=== PATIENT | male | born 1975 | race African-American/Black ===

== ENCOUNTER 2020-05-13 18:06 | Emergency (ER) | payer OTHER ==
[~2020-05-13] VITALS: Ht 165.1 cm; Wt 63.5 kg
[2020-05-13] MEDS ORDERED: PROAIR HFA8.5 GM INH (18:14)
[2020-05-13 18:54] LABS: ABSOLUTE BASOPHILS 0.1 thou/uL (0.0-0.2); ABSOLUTE EOSINOPHILS 0.4 thou/uL (0.0-0.7); ABSOLUTE MONOCYTES 0.9 thou/uL (0.0-1.2); ABSOLUTE NEUTROPHILS 6.5 thou/uL (1.6-8.1); BASOPHILS 1.1 %; EOSINOPHILS 3.4 %; HEMATOCRIT 42.5 % (42.0-52.0); HEMOGLOBIN 14.2 gm/dL (14.0-18.0); LYMPHOCYTES 27.6 %; MCHC 33.5 g/dL (28.0-37.0); MCV 89.5 fL (80.0-100.0); MONOCYTES 8.4 %; MPV 7.2 fl. (7.2-11.1); NUCLEATED RBCS 0 /100WBC; PLATELET COUNT* 280 thou/uL (150-400); POLYS 59.5 %; RBC 4.75 mil/uL (4.50-6.00); RDW-CV 13.9 % (10.5-14.5); WBC 10.9 thou/uL (4.0-11.0)
[2020-05-13 19:04] LABS: APTT 26.5 Seconds (25.0-31.3); PROTIME 10.7 Seconds (9.20-11.50)
[2020-05-13 19:08] LABS: CALCIUM 9.3 mg/dL (8.5-10.1); CREATININE 1.4 mg/dL (0.6-1.3); POTASSIUM 3.8 mmol/L (3.5-5.1)
[2020-05-13 19:12] LABS: ALBUMIN 3.9 g/dL (3.4-5.0); TOTAL BILIRUBIN 0.3 mg/dL (<0.1-1.0); TOTAL PROTEIN 7.2 g/dL (6.4-8.2)
[2020-05-13] MEDS ORDERED: CYCLOBENZAPRINE5 MG PO (19:31)
[2020-05-13] MEDS ORDERED: NAPROSYN500 MG PO (19:31)
[2020-05-13 19:34] LABS: AMP/METHAMP Negative (Negative); BARBITURATES Negative (Negative); BENZODIAZEPINES Negative (Negative); COCAINE Negative (Negative); METHADONE Negative (Negative); OPIATES Negative (Negative); PCP Negative (Negative); THC POSITIVE (Negative)
[2020-05-13] MEDS ORDERED: KEFLEX500 M1 PO (19:46)
[2020-05-13 19:56] VITALS: BP 125/70
--- NOTE | 2020-05-14 09:05 | EKG ---
[place] [address] ELECTROCARDIOGRAM REPORT Name: DIDI BHAT Room: [facility]#: [id number] Admission: 05/13/20 Attend Phys: Discharge: 05/13/20 Date of : 79 Date of Service: 05/13/201810 Report #: [id number] THIS REPORT FOR: //name// [facility] ED Test Date: 2020-05-13 Test Time: 18:11:20 Pat Name: DIDI BHAT Department: Room: Gender: Contracts Representative: : 1975 Requested By: Corie Cordoba Order Number: [id number] MD: Mina Cameron Measurements Intervals [place] Rate: 59 P: 55 VA: 176 QRS: 73 QRSD: 76 T: 54 QT: 365 QTc: 362 Interpretive Statements Sinus rhythm ST elev, probable normal early repol pattern Baseline wander in lead(s) II,III,aVR,aVL,aVF,V1,V2 No previous ECG available for comparison Electronically Signed On 05-14-2020 9:05:42 [employer]RAIN [employer] by Mina Cameron [email or web address] <ELECTRONICALLY SIGNED> By: Mina Cameron MD, FACC 05/14/20 0905 181 10 Mina Cameron MD, [facility] /EPI
== END 2020-05-13 19:56 | disposition home or self-care (01) ==
LOC: M.ERS 18:06
PROVIDERS: Personal Emergency Response Attendant
DX: R07.89 Other chest pain (principal); N62 Hypertrophy of breast; J45.909 Unspecified asthma, uncomplicated; Z88.0 Allergy status to penicillin; Z79.899 Other long term (current) drug therapy

== ENCOUNTER 2021-05-10 09:28 | Emergency (ER) | payer OTHER ==
[~2021-05-10] VITALS: Ht 162.6 cm; Wt 65.8 kg
[~2021-05-10 09:28] MED LIST: CYCLOBENZAPRINE5 MG PO; KEFLEX500 M1 PO; NAPROSYN500 MG PO; PROAIR HFA8.5 GM INH
[2021-05-10] MEDS ORDERED: MEDROLDOSEPACK PO (10:03)
[2021-05-10 10:13] VITALS: BP 104/63
== END 2021-05-10 10:14 | disposition home or self-care (01) ==
LOC: M.ERS 09:28
DX: M79.642 Pain in left hand (principal); M79.641 Pain in right hand; Z88.0 Allergy status to penicillin; J45.909 Unspecified asthma, uncomplicated